=== PATIENT | male | born 1965 | race Two or more races ===

== ENCOUNTER 2022-04-21 09:04 | Emergency (ER) | payer SELFPAY ==
[~2022-04-21] VITALS: Ht 167.6 cm; Wt 65.8 kg
--- NOTE | 2022-04-21 09:27 | NUR ---
PATIENT NOT ABLE TO PROVIDE URINE SAMPLE, MADE AWARE
[2022-04-21] MEDS ORDERED: LORAZEPAM 1 MG TABLET ONE (09:28)
[2022-04-21] MEDS ORDERED: LORAZEPAM 1 MG TABLET PO ONE (09:30)
--- NOTE | 2022-04-21 09:46 | NUR ---
CENTRAL SCHEDULER AT BEDSIDE FOR XRAY
--- NOTE | 2022-04-21 10:00 | NUR ---
SALINE LOCK ESTABLISHED, BLOOD DRAWN AND SENT TO LAB
[2022-04-21 10:24] LABS: BASOPHILS % (AUTO) 0.3 % (0.0-2.0); EOSINOPHILS % (AUTO) 0.9 % (0.0-6.0); HEMATOCRIT 40 % (39-51); HEMOGLOBIN 13.4 g/dL (13.5-17.5); LYMPHOCYTES # (AUTO) 0.9 K/uL (0.8-4.8); LYMPHOCYTES % (AUTO) 5.4 % (20.0-44.0); MEAN CORPUSCULAR HGB CONC 33 g/dl (31.0-36.0); MEAN CORPUSCULAR VOLUME 86 fL (80-96); MONOCYTES # (AUTO) 0.7 K/uL (0.1-1.30); MONOCYTES % (AUTO) 4.3 % (2.0-12.0); NEUTROPHILS # (AUTO) 14.4 K/uL (1.8-8.9); NEUTROPHILS % (AUTO) 89.1 % (43.0-81.0); PLATELET COUNT (AUTO) 343 K/uL (150-450); RED BLOOD CELL COUNT(AUTO) 4.69 MIL/uL (4.5-6.0); WHITE BLOOD COUNT (AUTO) 16.1 K/uL (4.3-11.0)
[2022-04-21 10:57] LABS: CALCIUM, SERUM 8.5 mg/dL (8.5-10.1); CARBON DIOXIDE 26 mmol/L (21-32); CHLORIDE 97 mmol/L (98-107); CREATININE 1.1 mg/dL (0.6-1.3); GLUCOSE 102 mg/dL (74-106); POTASSIUM 3.7 mmol/L (3.5-5.1); SODIUM SERUM 130 mmol/L (136-145); UREA NITROGEN, BLOOD 11 mg/dL (7-18)
[2022-04-21 11:01] LABS: ACETAMINOPHEN < 0 ug/ml (10-30)
[2022-04-21] MEDS ORDERED: IV NS 0.9% 1,000 ML BAG IV ONE (11:30)
--- NOTE | 2022-04-21 11:48 | NUR ---
PATIENT REFUSING TO PROVIDE URINE SAMPLE. MADE AWARE
[2022-04-21] MEDS ORDERED: AZITHROMYCIN 250 MG TABLET PO ONE (12:00)
[2022-04-21] MEDS ORDERED: AMOX/CLAVULANATE 875 MG TABLET PO ONE (12:00)
[2022-04-21] MEDS ORDERED: AMOX/CLAVULANATE 875 MG TABLET ONE (12:04)
[2022-04-21] MEDS ORDERED: AZITHROMYCIN 250 MG TABLET ONE (12:04)
[2022-04-21 12:12] LABS: ALCOHOL, BLOOD < 3 mg/dL (0-0)
[2022-04-21] MEDS ORDERED: AMOX-430 PO (12:39)
[2022-04-21] MEDS ORDERED: AZIT250T13 PO (12:39)
--- NOTE | 2022-04-21 12:57 | NUR ---
PT STABLE FOR DISCHARGE, AGITATED. REFUSED TO SIGN DISCHARGE PAPER. LEFT ED W/ STEADY GAIT. YELLING AT STAFF.
[2022-04-21 12:58] VITALS: BP 132/80
== END 2022-04-21 12:58 | disposition home or self-care (01) ==
LOC: ER 09:09
DX: J18.9 Pneumonia, unspecified organism (principal); R07.89 Other chest pain; E87.1 Hypo-osmolality and hyponatremia; F20.9 Schizophrenia, unspecified
CPT/HCPCS: 99285; 96360; 96361; 93005; 71045; 85025; 80048; 83605; 36415; 84484 ×2; 80143; 80320; J7030; G0480